=== PATIENT | female | born 1965 | race Caucasian/White ===

== ENCOUNTER → 2018-02-14 | Outpatient (CLI) | payer MEDICARE, BC | END | disposition home or self-care (01) | LOC: SURG 11:45 | PROVIDERS: ATTEND Anesthesiology Pain Medicine | DX: M47.814 Spondylosis without myelopathy or radiculopathy, thoracic region (principal); M47.816 Spondylosis without myelopathy or radiculopathy, lumbar region; M47.812 Spondylosis without myelopathy or radiculopathy, cervical region; J45.998 Other asthma; K21.9 Gastro-esophageal reflux disease without esophagitis; E03.8 Other specified hypothyroidism; I25.10 Atherosclerotic heart disease of native coronary artery without angina pectoris; Z79.01 Long term (current) use of anticoagulants; Z90.710 Acquired absence of both cervix and uterus | CPT/HCPCS: 99213 ==

== ENCOUNTER → 2018-05-30 | Day surgery (SDC) | payer MEDICARE, BC ==
[~2018-05-30] MED LIST: ALBU2.5V8 IH; ASPI81TA50 PO; BUPIVACAINE MPF 0.25% 10 ML VIAL. ONE; CYAN10005 PO; DEXAMETHASONE SOD PHOS 4 MG/ML VIAL ONE; FAMO-63 PO; FURO-69 PO; GABA-585 PO; LEVO75TA PO; LEXAPRO20 MG PO; LIDOCAINE 1% PF 30 ML VIAL. ONE; LIPITOR80 MG PO; LISI-334 PO; MIDAZOLAM HCL PF 2 MG/2 ML VIAL. ONE; PANT40TA3 PO; POLY119P19 PO
[2018-05-30 09:49] VITALS: BP 108/62
== END | disposition home or self-care (01) ==
LOC: SURG 07:35
PROVIDERS: ATTEND Anesthesiology Pain Medicine
DX: M47.814 Spondylosis without myelopathy or radiculopathy, thoracic region (principal); J32.9 Chronic sinusitis, unspecified; J45.909 Unspecified asthma, uncomplicated; J18.9 Pneumonia, unspecified organism; I25.2 Old myocardial infarction; M19.90 Unspecified osteoarthritis, unspecified site; E03.9 Hypothyroidism, unspecified; Z90.710 Acquired absence of both cervix and uterus; Z90.49 Acquired absence of other specified parts of digestive tract; Z88.2 Allergy status to sulfonamides; Z88.1 Allergy status to other antibiotic agents; Z88.8 Allergy status to other drugs, medicaments and biological substances; Z95.5 Presence of coronary angioplasty implant and graft; Z79.899 Other long term (current) drug therapy; Z98.84 Bariatric surgery status; Z98.890 Other specified postprocedural states
CPT/HCPCS: 64633; 64634; J1100; J2001; J2250; J3010; J3490; 99152

== ENCOUNTER → 2019-12-30 | Outpatient (CLI) | payer MEDICARE ==
[2018-05-30 09:49] VITALS: BP 108/62
[~2019-12-30] MED LIST changes: -BUPIVACAINE MPF 0.25% 10 ML VIAL. ONE; +CYAN-25 PO; -CYAN10005 PO; -DEXAMETHASONE SOD PHOS 4 MG/ML VIAL ONE; -LIDOCAINE 1% PF 30 ML VIAL. ONE; -MIDAZOLAM HCL PF 2 MG/2 ML VIAL. ONE
--- NOTE | 2019-12-30 13:19 | RAD ---
Examination: SACROILIAC JOINTS 3V History: Reason: INFLAMMATORY ARTHRITIS / Spl. Instructions: / History: Comparison/Correlation: None Findings: Total of 3 images of the sacroiliac bones were provided. Sacroiliac joints are symmetric and adequate. Subtle sclerosis involving the right sacroiliac joint is noted. No fracture or bone destruction. Soft tissues are grossly unremarkable. Pelvic calcifications probably represent phleboliths. Hip joints appear adequate and symmetric. Visualized bony structures are intact. Impression: Slight sclerosis of the right sacroiliac joint. No significant arthritic findings. Electronically signed by: Wil Waddell MD (12/30/2019 1:16 PM) [id number]
--- NOTE | 2019-12-30 15:24 | RAD ---
Three views HAND BILAT 3V Clinical History: Reason: INFLAMMATORY ARTHRITIS / Spl. Instructions: / History: Comparison: None. Findings: The visualized osseous structures appear normal. Impression: No acute findings. Electronically signed by: Wayne Mendez III, MD (12/30/2019 3:21 PM) [facility]
--- NOTE | 2019-12-30 16:43 | RAD ---
Examination: FOOT BILAT 3V History: Reason: INFLAMMATORY ARTHRITIS / Spl. Instructions: / History: Comparison/Correlation: None Findings: Three-view exam of the right foot and 3 view examination left foot was performed. Deformity of the fourth digit proximal phalanx at its distal aspect is present with apparent widening of the proximal interphalangeal joint. Similar appearance involving the fifth digit of the left foot at the proximal interphalangeal joint. Correlate with previous intervention. Joint spaces otherwise are within normal limits for age. No acute fracture or bone destruction. Soft tissues are unremarkable. Small to moderate sized calcaneal spur bilaterally is present. Impression: No acute process. No significant arthritic findings. Electronically signed by: Wil Waddell MD (12/30/2019 4:40 PM) [id number]
== END | disposition home or self-care (01) ==
LOC: DXRAD 11:06
PROVIDERS: ATTEND Internal Medicine Rheumatology
DX: M77.32 Calcaneal spur, left foot (principal); M77.31 Calcaneal spur, right foot; M21.6X2 Other acquired deformities of left foot; M21.6X1 Other acquired deformities of right foot
CPT/HCPCS: 72202; 73130; 73630

== ENCOUNTER → 2020-08-27 | Outpatient (CLI) | payer MEDICARE ==
[2018-05-30 09:49] VITALS: BP 108/62
[~2020-08-27] MED LIST changes: +CYCL-331 PO; +HYDR-2769 PO; -LISI-334 PO; +LISI20TA18 PO; +MORP-15 PO
== END ==
LOC: LAB 09:32
PROVIDERS: ATTEND Nurse Anesthetist, Certified Registered
DX: Z01.812 Encounter for preprocedural laboratory examination (principal); K21.9 Gastro-esophageal reflux disease without esophagitis; Z86.010 Personal history of colon polyps; Z20.822 Contact with and (suspected) exposure to COVID-19
CPT/HCPCS: U0003

== ENCOUNTER → 2020-08-31 | Day surgery (SDC) | payer MEDICARE ==
[~2020-08-31] MED LIST changes: +IPRATRPIUM/ALBUTEROL 0.5/2.5MG 3 ML NEBU. NEB PRN; +IV RINGERS SOLUTION,LACTATED 1,000 ML IV SCH; +LIDOCAINE 2% PF 5 ML VIAL. ONE; +MIDAZOLAM HCL PF 2 MG/2 ML VIAL. IV ONE; +PROPOFOL 10,000 MCG/ML (20ML) VIAL IV ONE
[2020-08-31 12:17] VITALS: BP 104/56
--- NOTE | 2020-09-06 16:20 | PATHOLOGY ---
[facility] Accession Number: [id number] . 01 Material submitted: . gastrointestinal site - GASTRIC BIOPSY . 01 Clinical history: . GERD/SCREENING EGD/COLONOSCOPY PREVIOUS VISIT PRINT DX: CALCANEAL SPUR, LEFT FOOT . 02 Diagnosis: Gastric biopsies, antrum: - Chronic gastritis, mild. (JPM:felicitas; 09/06/2020) S 09/06/2020 1341 Local . 02 Comment: Sections of the gastric antral biopsy show congestion and mild chronic inflammation. A properly controlled immunoperoxidase stain for Helicobacter is negative for Helicobacter organisms. (JPM:felicitas; 09/06/2020) . Special stain performed: Immunoperoxidase stain for Helicobacter on A1. . 02 Electronically signed: . Marquise Gong MD, Pathologist NPI- [id number] . 01 Gross description: . The specimen is received in formalin, labeled "Catarino Galeas, gastric biopsy". Received is a segment of pale alfredo tissue measuring 0.5 cm in maximum dimensions. The specimen is submitted entirely in cassette A1. ([facility]; 09/03/2020) QA/QAC 09/03/2020 1115 Local . 02 Pathologist provided ICD-10: K29.50 . 02 CPT . 458048, [id number] Specimen Comment: A courtesy copy of this report has been sent to [phone] Specimen Comment: 0 Specimen Comment: Report sent to / DR ALEMAN Performed at: 01 [facility] [address], [place], [place] [id number] MD Charly Crump MD Phone: [phone] Performed at: 02 [facility] [address] [place], [place] [id number] MD Marquise Gong MD Phone: [phone]
== END | disposition home or self-care (01) ==
LOC: SURG 09:40
PROVIDERS: ATTEND Emergency Medicine
DX: Z12.11 Encounter for screening for malignant neoplasm of colon (principal); R10.13 Epigastric pain; K22.2 Esophageal obstruction; K44.9 Diaphragmatic hernia without obstruction or gangrene; K21.9 Gastro-esophageal reflux disease without esophagitis; K29.50 Unspecified chronic gastritis without bleeding; E03.9 Hypothyroidism, unspecified; I25.10 Atherosclerotic heart disease of native coronary artery without angina pectoris; M19.90 Unspecified osteoarthritis, unspecified site; Z88.8 Allergy status to other drugs, medicaments and biological substances; Z83.71 Family history of colonic polyps; Z79.899 Other long term (current) drug therapy; Z79.82 Long term (current) use of aspirin; Z88.1 Allergy status to other antibiotic agents; Z79.01 Long term (current) use of anticoagulants; Z90.710 Acquired absence of both cervix and uterus; Z90.49 Acquired absence of other specified parts of digestive tract; Z86.010 Personal history of colon polyps; Z87.01 Personal history of pneumonia (recurrent); Z98.890 Other specified postprocedural states; Z98.84 Bariatric surgery status
CPT/HCPCS: 43239; 43450; 88305; 88342; G0105; J2001; J2704; J7120; 45378

== ENCOUNTER → 2021-01-03 | Outpatient (CLI) | payer MEDICARE ==
[2020-08-31 12:17] VITALS: BP 104/56
[~2021-01-03] MED LIST changes: -IPRATRPIUM/ALBUTEROL 0.5/2.5MG 3 ML NEBU. NEB PRN; -IV RINGERS SOLUTION,LACTATED 1,000 ML IV SCH; -LIDOCAINE 2% PF 5 ML VIAL. ONE; -MIDAZOLAM HCL PF 2 MG/2 ML VIAL. IV ONE; -PROPOFOL 10,000 MCG/ML (20ML) VIAL IV ONE
[2021-01-03 13:02] LABS: BASO # 0.1 x10^3/uL (0.0-0.2); BASO % 1 % (0-3); EOS # 0.2 x10^3/uL (0.0-0.7); EOS % 2 % (0-3); HEMATOCRIT 42.3 % (36.0-47.0); HEMOGLOBIN 13.7 g/dL (12.0-15.5); LYMPH # 2.8 x10^3/uL (1.0-4.8); LYMPH % 26 % (24-48); MEAN CORPUSCULAR HEMOGLOBIN 26 pg (25-35); MEAN CORPUSCULAR HGB CONC 32 g/dL (31-37); MEAN CORPUSCULAR VOLUME 81 fL (79-100); MONO # 0.8 x10^3/uL (0.0-1.1); MONO % 8 % (0-9); NEUT # 6.8 x10^3uL (1.8-7.7); NEUT % 63 % (31-73); PLATELET COUNT 230 x10^3/uL (140-400); RED BLOOD COUNT 5.26 x10^6/uL (3.50-5.40); RED CELL DISTRIBUTION WIDTH 16.9 % (11.5-14.5); WHITE BLOOD COUNT 10.8 x10^3/uL (4.0-11.0)
[2021-01-03 14:07] LABS: ALBUMIN 3.5 g/dL (3.4-5.0); DIRECT BILIRUBIN 0.2 mg/dL (0.0-0.2); TOTAL BILIRUBIN 0.5 mg/dL (0.2-1.0)
--- NOTE | 2021-01-03 14:59 | RAD ---
AP and Lateral Views of the Chest 01/03/2021 12:32 PM Indication: Reason: START OF MEDICATION FOR PSORIASIS / Spl. Instructions: / History: Comparison: None Findings: There is no focal consolidation or infiltrate identified. The cardiomediastinal silhouette is within normal limits. There is no evidence of pneumothorax or pleural effusion. No acute osseous a bnormalities are identified. Impression: No evidence of acute cardiopulmonary process. Electronically signed by: Olvin Wong MD (01/03/2021 2:57 PM) [id number]
== END ==
LOC: LAB 12:14
PROVIDERS: ATTEND Physician Assistant
DX: Z79.899 Other long term (current) drug therapy (principal)
CPT/HCPCS: 71046; 80076; 85025; 86481; 86705; 86709; 86803; 87340